=== PATIENT | female | born 1965 | race Hispanic/Latino ===

== ENCOUNTER 2018-02-19 21:14 | Emergency (ER) | payer OTHER, SELFPAY ==
[2018-02-19] MEDS ORDERED: Acetaminophen/Codeine 30-300mg Tablet ONE (21:55)
== END 2018-02-19 22:20 | disposition home or self-care (01) ==
LOC: ERS 21:14
DX: B02.9 Zoster without complications (principal)
CPT/HCPCS: 99282

== ENCOUNTER 2018-03-03 08:59 | Outpatient (CLI) | payer OTHER ==
--- NOTE | 2018-03-03 11:26 | RAD ---
CHEST 2 VIEWS: Date: 03/03/18 HISTORY: Fatigue. Dyspnea. FINDINGS: No comparison. Cardiac silhouette and pulmonary vasculature are unremarkable. Mediastinum midline. No lobar consolid ation or evidence of pneumothorax. No pleural fluid. IMPRESSION: No active cardiopulmonary abnormalities are demonstrated. POS: [facility]
== END 2018-03-03 09:00 | disposition home or self-care (01) ==
LOC: RAD 08:59
PROVIDERS: ATTEND Family Medicine
DX: R53.83 Other fatigue (principal)
CPT/HCPCS: 71046

== ENCOUNTER 2018-03-03 09:43 | Outpatient (CLI) | payer OTHER | END 2018-03-03 09:44 | disposition home or self-care (01) | LOC: BICMAMMO 09:43 | PROVIDERS: ATTEND Family Medicine | DX: Z12.31 Encounter for screening mammogram for malignant neoplasm of breast (principal); R19.00 Intra-abdominal and pelvic swelling, mass and lump, unspecified site; D25.9 Leiomyoma of uterus, unspecified; R92.1 Mammographic calcification found on diagnostic imaging of breast | CPT/HCPCS: 76856; 77067 ==

== ENCOUNTER 2019-01-29 15:21 | Outpatient (CLI) | payer OTHER ==
--- NOTE | 2019-01-29 16:52 | MRI ---
MRI Upper Ext Jt Rt WO Con History: [S 43.401D sprain of right shoulder] Comparison: None. Findings: Biceps tendon: Moderate extra articular biceps tenosynovitis. Moderate intra-articular tend inosis. Labrum: Grossly stable tear is appreciated. Rotator cuff: There is a full-thickness fullwidth supraspinatus tendon tear from the footprint with a 8mm gap with some bridging scar in situ along the bursal surface. There is extensive high-grade unde rsurface tearing into the infraspinatus tendon anterior one half fibers. Marked tendinosis of the sub scapularis. 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 Mild glenoid re troversion. Muscles: Approximate 10-15% atrophy of the supraspinatus and infraspinous muscles. Soft tissues: Moderate subacromial/subdeltoid bursa effusion due to communication with the glenohumer al joint. Impression: 1. Full-thickness full width supraspinous tendon tear from the footprint with an 8 mm gap. There is b ridging scar in situ along the bursal surface. 2. Extension of high-grade undersurface tearing involving the anterior 50% infraspinous tendon with i nterstitial delamination and myotendinous junction ganglion pseudocyst formation. 3. 10-15% atrophy of the supraspinatus and infraspinatus muscles. 4. Marked tendinosis of the subscapularis. 5. No displaced labral tear.
== END 2019-01-29 15:22 | disposition home or self-care (01) ==
LOC: MRI 15:21
PROVIDERS: ATTEND Family Medicine
DX: S43.401D Unspecified sprain of right shoulder joint, subsequent encounter (principal); M75.121 Complete rotator cuff tear or rupture of right shoulder, not specified as traumatic; M62.511 Muscle wasting and atrophy, not elsewhere classified, right shoulder

== ENCOUNTER 2025-05-30 06:58 | Emergency (ER) | payer OTHER ==
[2025-05-30 07:25] LABS: Hematocrit 38.3 % (36.0-47.0); Hemoglobin 13.3 g/dL (12.0-16.0); Mean Corpuscular Hemoglobin 30.4 pg (27.0-31.0); Mean Corpuscular Volume 87.6 fL (78.0-98.0); Platelet Count 248 10x3/uL (130-400); Red Blood Cell (RBC) Count 4.37 mill/uL (4.20-5.40); White Blood Cell (WBC) Count 5.23 10x3/uL (4.8-10.8)
[2025-05-30 07:37] LABS: Troponin I Less than 0.010 ng/mL (< 0.028)
[2025-05-30] MEDS ORDERED: Famotidine/PF 20 mg/2ml Vial ONE (07:37)
[2025-05-30] MEDS ORDERED: Metoclopramide HCl 10 MG (2 mL) VIAL ONE (07:37)
[2025-05-30 07:38] LABS: ALT (SGPT) 14 U/L (Less than 34); AST (SGOT) 18 U/L (11-34); Albumin 4.1 g/dL (3.1-4.5); Alkaline Phosphatase 84 U/L (40-110); Anion Gap 15 mmol/L (10-20); BUN (Urea Nitrogen) 12 mg/dL (9.8-20.1); Bilirubin, Total 0.4 mg/dL (0.3-1.2); Calc. Creatinine Clearance 0 mL/min (70-130); Calcium 9.1 mg/dL (7.8-10.44); Carbon Dioxide 19 mmol/L (23-31); Chloride 111 mmol/L (98-107); Globulin 2.8 g/dL (2.4-3.5); Glucose 138 mg/dL (80-115); Lipase 19 U/L (8-78); Potassium 3.8 mmol/L (3.5-5.1); Sodium 141 mmol/L (136-145)
[2025-05-30 08:05] LABS: Platelet Adequacy Comment Platelets Normal; RBC Morphology Within Normal Limits; Reflex for Review?? YES; Smudge Cells 8.0 %
[2025-05-30] MEDS ORDERED: Iopamidol-370 76% 500 ML MDV (1 ML CHARGE) ONE (11:26)
== END 2025-05-30 10:44 | disposition short-term general hospital (02) ==
LOC: ERS 06:58
DX: R42 Dizziness and giddiness (principal); R11.2 Nausea with vomiting, unspecified; R29.700 NIHSS score 0; Z86.711 Personal history of pulmonary embolism
CPT/HCPCS: 70450; 71045; 74177; 80053; 83690; 84484; 85025; 85060; 93005; 96374; 96375; J1308; J2060; J2765; Q9967